=== PATIENT | male | born 1975 | race Asian ===

== ENCOUNTER 2017-03-17 13:25 | Emergency (ER) | payer MEDICAID ==
[~2017-03-17] VITALS: Ht 175.3 cm; Wt 81.6 kg
[~2017-03-17 13:25] MED LIST: CELEXA40 MG ORAL; CLINDAMYCIN HC300 MG ORAL; CLONIDINE 0.2M0.2 MG GT; KLONOPIN1 MG ORAL; LEXAPRO5 MG ORAL; NEURONTIN600 MG ORAL; QUETIAPINE FUMA25 MG ORAL; SEROQUEL400 MG ORAL
[2017-03-17] MEDS ORDERED: Morgan Lens TOPIC ONE (14:00)
[2017-03-17] MEDS ORDERED: Tetracaine 0.5% Opth 4ml Soln RIGHT EYE ONE (14:00)
--- NOTE | 2017-03-17 14:20 | Emergency Room Report ---
History of Present Illness General Chief Complaint: To Be Triaged Source: Patient Present Illness HPI [id number] concerned for clotrimazole in eyes. Mild itch. No eye drainage/excessive tearing, change in/loss of vision, blurry vision, headache, nausea, vomiting Endorses 2 weeks of generalized body itch - endorses initial lobo pedis rash/ itch and then "spread to whole body." Denies fever/chills, vesicles, blisters has been applying clotrimazole cream to eyelids, whole body Allergies: Uncoded Allergies: ALL ANTI-PYSCHOTICS. (Allergy, Mild, 01/16/13) POOR HISTORIAN ANTIPSYCHOTICS (Allergy, Unknown, 02/23/12) ANXIETY Patient History Past Medical History: none Past Surgical History: none Pertinent Family History: none Social History: Denies: smoking, alcohol use, drug use Immunizations: UTD Reviewed Nursing Documentation: PMH: Agreed, PSxH: Agreed Nursing Documentation-PMH Hx Neurological Problems: Yes - ADHD Review of Systems All Other Systems: negative except mentioned in HPI Physical Exam Sp02 EP Interpretation: reviewed, normal General Appearance: normal inspection, well appearing, no apparent distress, alert, GCS 15, non-toxic Head: normocephalic, atraumatic Eyes: bilateral eye PERRL, bilateral eye EOMI, bilateral eye other - Bilateral eyes no conjunctival injection ENT: normal ENT inspection, hearing grossly normal, normal voice Neck: normal inspection, full range of motion, supple, no bony tend Respiratory: normal inspection, lungs clear, normal breath sounds, no respiratory distress, no retraction, no wheezing Cardiovascular #1: regular rate, rhythm, no edema Gastrointestinal: normal inspection, normal bowel sounds, non tender, soft, no guarding, no hernia Genitourinary: no CVA tenderness Musculoskeletal: normal inspection, back normal, normal range of motion, Tracey' s Sign negative Neurologic: normal inspection, alert, oriented x3, responsive, leak detector III-XII nml as tested, speech normal Psychiatric: normal inspection, judgement/insight normal, mood/affect normal Skin: normal inspection, normal color, no rash, warm/dry Medical Decision Making Diagnostic Impression: Primary Impression: Itch Additional Impressions: Itch of left eye Itch of right eye ER Course patient likely spread fungal infection from tinea pedis to whole body More likely now irritated conjunctiva No sign of infection, conjunctivitis currently Still c/o systemic itch but not systemic rash, symptoms PO fluconazole given in ED Advised STOP clotrimazole PMD followup as needed DC Status: improved Disposition: HOME, SELF-CARE Condition: Improved Patient Instructions: Pruritus Additional Instructions: - STOP using clotrimazole cream - Use over the counter benadryl as needed for itch - Follow up with your primary care doctor in 1 week if needed DAMIR RUIZ M.D. Mar 17, 2017 14:20
[2017-03-17] MEDS: Fluconazole 100mg tab ORAL ONE (14:28)
[2017-03-17 14:31] VITALS: BP 120/80
== END 2017-03-17 14:45 | disposition home or self-care (01) ==
LOC: EMR 14:36
DX: L29.9 Pruritus, unspecified (principal); H57.8 Other specified disorders of eye and adnexa; Z88.8 Allergy status to other drugs, medicaments and biological substances
CPT/HCPCS: 99282

== ENCOUNTER 2017-03-19 11:12 | Emergency (ER) | payer MEDICAID ==
[~2017-03-19] VITALS: Ht 172.7 cm; Wt 81.6 kg
[2017-03-19 11:45] VITALS: BP 126/72
[2017-03-19] MEDS ORDERED: TERBINAFINE HC250 MG PO (12:16)
[2017-03-19] MEDS ORDERED: BENADRYL25 MG ORAL (12:16)
[2017-03-19 12:19] VITALS: BP 128/70
--- NOTE | 2017-03-19 13:44 | Emergency Room Report ---
History of Present Illness General Chief Complaint: Skin Rash/Abscess Source: Patient Present Illness HPI The patient is a 41-year-old male presenting for possible skin infection he was seen in this emergency department recently for the same complaint. He states that he had tinea pedis approximately 1 month prior which then spread to his entire body. He has been applying clotrimazole topically and states it has not been helping. He states that he has also been applying this to his eyelids. He states that he knows this is wrong. He denies any pain. He does admit to extreme itching. He denies any other medical problems. He denies other symptoms including nausea, vomiting, fever, chills, blurred vision, dizziness, headache Allergies: Uncoded Allergies: ALL ANTI-PYSCHOTICS. (Allergy, Mild, 01/16/13) POOR HISTORIAN ANTIPSYCHOTICS (Allergy, Unknown, 02/23/12) ANXIETY Patient History Past Medical History: see triage record Past Surgical History: other Social History: Reports: drug use Reviewed Nursing Documentation: PMH: Agreed, PSxH: Agreed Nursing Documentation-PMH History Of Psychiatric Problem: Yes - Bipolar Hx Neurological Problems: Yes - ADHD Review of Systems All Other Systems: negative except mentioned in HPI Physical Exam Vital Signs Date Time Temp Pulse Resp B/P (MAP) Pulse Ox O2 Delivery O2 Flow Rate FiO2 03/19/17 11:26 98.4 95 16 121/73 97 Room Air Sp02 EP Interpretation: reviewed, normal General Appearance: no apparent distress, alert, GCS 15, non-toxic Head: normocephalic, atraumatic Eyes: bilateral eye PERRL, bilateral eye EOMI, bilateral eye lid inflammation - inferior ENT: hearing grossly normal, normal pharynx, no angioedema, normal voice Neck: full range of motion, supple/symm/no masses Musculoskeletal: back normal, gait/station normal, normal range of motion, non- tender Neurologic: alert, oriented x3, responsive, motor strength/tone normal, sensory intact, speech normal Psychiatric: judgement/insight normal, memory normal, mood/affect normal, no suicidal/homicidal ideation Skin: normal color, warm/dry, well hydrated, rash - multiple erythematous lesions with raised border, circular Medical Decision Making PA Attestation Dr. Madison is my supervising physician. Patient management was discussed with my supervising physician Diagnostic Impression: Primary Impression: Tinea corporis ER Course The patient is a 41-year-old male presenting for possible skin infection Differential diagnoses considered but not limited to: Tinea corporis, scabies, insect bite, cellulitis, among others Physical exam: Afebrile. No apparent distress HEENT exam: There is bilateral anterior eyelid erythema. PERRL. EOMI. no discharge. Skin: Warm and dry. There are multiple small circular erythematous lesions with raised borders. No burrowing. No surrounding erythema. Nontender Patient is discharged home with prescription for oral antifungal. He was informed he is not to consume any alcohol with this and the dangers associated with it. ER precautions are given. He will follow up with primary doctor Last Vital Signs Date Time Temp Pulse Resp B/P (MAP) Pulse Ox O2 Delivery O2 Flow Rate FiO2 03/19/17 12:19 98.2 72 20 128/70 98 Room Air Status: improved Disposition: HOME, SELF-CARE Condition: Improved Scripts Diphenhydramine Hcl* (BENADRYL*) 25 Mg Capsule 25 MG ORAL Q6H Y for Itching, #30 CAP Prov: JORGE MCGUIRE.A. 03/19/17 Terbinafine Hcl* (LAMISIL*) 250 Mg Tablet 250 MG PO DAILY, #14 TAB Prov: JORGE MCGUIRE.Martin. 03/19/17 Referrals: NOT CHOSEN [facility],REFERRING (PCP) Patient Instructions: Rash, Body Ringworm Additional Instructions: I discussed my findings with the patient. All questions and concerns have been answered. Treatment and medication compliance have been addressed. I advised the patient that they need to follow up with PMD in 3-5 days. Return to ED if symptoms worsen, new symptoms arise, or if needed for any reason. Patient verbalized understanding of discharge instructions. JORGE MCGUIRE Mar 19, 2017 13:44
== END 2017-03-19 12:42 | disposition home or self-care (01) ==
LOC: EMR 12:15
DX: B35.4 Tinea corporis (principal); F31.9 Bipolar disorder, unspecified; Z88.8 Allergy status to other drugs, medicaments and biological substances
CPT/HCPCS: 99284

== ENCOUNTER 2017-10-20 20:31 | Emergency (ER) | payer MEDICAID, OTHER ==
[~2017-10-20] VITALS: Ht 172.7 cm; Wt 83.9 kg
[~2017-10-20 20:31] MED LIST changes: +BENADRYL25 MG ORAL; +TERBINAFINE HC250 MG PO
[2017-10-20 20:51] VITALS: BP 113/77
--- NOTE | 2017-10-20 21:30 | Emergency Room Report ---
History of Present Illness General Chief Complaint: Earache Source: Patient Present Illness HPI 42-year-old male with no medical problems presents with foreign body sensation in left ear He reports he discussed the shower and hour ago, but a Q-tip in his ear, pulled it out, and the cotton tip was no longer on the Q-tip and so he knows it's in his ear He denies pain or bleeding Allergies: Uncoded Allergies: ALL ANTI-PYSCHOTICS. (Allergy, Mild, 01/16/13) POOR HISTORIAN ANTIPSYCHOTICS (Allergy, Unknown, 02/23/12) ANXIETY Patient History Past Medical History: see triage record Reviewed Nursing Documentation: PMH: Agreed; PSxH: Agreed Nursing Documentation-PMH History Of Psychiatric Problem: Yes - Bipolar Hx Neurological Problems: Yes - ADHD Review of Systems Constitutional: Reports: no symptoms Eye: Reports: no symptoms; Denies: see HPI, eye pain, blurred vision, tearing, double vision, nose pain, nose congestion, acuity changes, discharge, other ENT: Reports: see HPI, ear pain Hematologic/Lymphatic: Denies: no symptoms, see HPI, anemia Allergic: Reports: no symptoms Physical Exam Vital Signs Date Time Temp Pulse Resp B/P (MAP) Pulse Ox O2 Delivery O2 Flow Rate FiO2 10/20/17 20:42 99.2 81 14 113/77 95 Room Air 99.1 Sp02 EP Interpretation: reviewed, normal General Appearance: well appearing, no apparent distress, alert Eyes: bilateral eye normal inspection, bilateral eye PERRL, bilateral eye EOMI ENT: normal ENT inspection, hearing grossly normal, normal pharynx, normal voice, TMs + canals normal, moist mucus membranes, other - Left ear with cotton foreign body in canal Neck: normal inspection, full range of motion, supple Respiratory: normal inspection, chest non-tender, lungs clear, normal breath sounds Cardiovascular #1: normal inspection, regular rate, rhythm, no edema, no gallop , no murmur, no rub Gastrointestinal: non tender, soft Musculoskeletal: normal inspection Neurologic: normal inspection, alert, manager editorial III-XII nml as tested, motor strength /tone normal, sensory intact Psychiatric: normal inspection, judgement/insight normal, mood/affect normal Skin: normal inspection, normal color, no rash Lymphatic: normal inspection, no adenopathy Medical Decision Making Diagnostic Impression: Primary Impression: Foreign body in ear ER Course Simple alligator forceps was used to remove cotton ball with no difficulty, no bleeding, no, medications, canal and TM was normal upon visualization after removal of cotton Last Vital Signs Date Time Temp Pulse Resp B/P (MAP) Pulse Ox O2 Delivery O2 Flow Rate FiO2 10/20/17 20:51 99.1 65 14 113/77 95 Room Air 99.1 Disposition: HOME, SELF-CARE Condition: Stable Patient Instructions: Ear Foreign Body, [id number], Earache PARAG HINKLE M.D Oct 20, 2017 21:30
[2017-10-20 21:46] VITALS: BP 113/77
== END 2017-10-20 21:48 | disposition home or self-care (01) ==
LOC: EMR 21:20
DX: T16.2XXA Foreign body in left ear, initial encounter (principal); X58.XXXA Exposure to other specified factors, initial encounter; Y92.9 Unspecified place or not applicable; F31.9 Bipolar disorder, unspecified
CPT/HCPCS: 99282

== ENCOUNTER 2018-03-09 11:27 | Emergency (ER) | payer OTHER ==
[~2018-03-09] VITALS: Ht 175.3 cm; Wt 83.5 kg
[2018-03-09 11:45] VITALS: BP 115/70
--- NOTE | 2018-03-09 12:10 | Emergency Room Report ---
History of Present Illness General Chief Complaint: Eye Problems Source: Patient Present Illness HPI 42-year-old male patient presents ER complaining of trauma to the left eye. Patient reports that he was showering yesterday when he accidentally poked himself in the lateral aspect of his left eye near left border. Denies acute complaints at this time. Denies vision loss. Denies photophobia or vision changes. Denies eye discharge. Denies eye pain. Denies pain with eye movement. Denies foreign body sensation. Denies loss of consciousness. Patient reports he came to the ER to "make sure one of his eye muscles denies rupture". Denies wearing contacts. Denies loss of consciousness. Allergies: Uncoded Allergies: ALL ANTI-PYSCHOTICS. (Allergy, Mild, 01/16/13) POOR HISTORIAN ANTIPSYCHOTICS (Allergy, Unknown, 02/23/12) ANXIETY Patient History Past Medical History: see triage record Reviewed Nursing Documentation: PMH: Agreed; PSxH: Agreed Nursing Documentation-PMH Past Medical History: No Stated History Hx Neurological Problems: Yes - ADHD Review of Systems All Other Systems: negative except mentioned in HPI Physical Exam Vital Signs Date Time Temp Pulse Resp B/P (MAP) Pulse Ox O2 Delivery O2 Flow Rate FiO2 03/09/18 11:36 98.1 82 18 113/71 97 Room Air Sp02 EP Interpretation: reviewed, normal General Appearance: well appearing, no apparent distress, alert, GCS 15, non- toxic Head: normocephalic, atraumatic, other - no surrounding erythema or edema, negative Raccoon eyes Eyes: bilateral eye normal inspection, bilateral eye PERRL, bilateral eye EOMI , bilateral eye other - no conjunctival injection ENT: hearing grossly normal, normal pharynx, no angioedema, normal voice, uvula midline, moist mucus membranes Neck: full range of motion Respiratory: lungs clear, normal breath sounds, no rhonchi, no respiratory distress, no accessory muscle use, no wheezing, speaking full sentences Cardiovascular #1: regular rate, rhythm, no edema Musculoskeletal: back normal, digits/nails normal, gait/station normal, normal range of motion, non-tender Neurologic: alert, oriented x3, responsive, motor strength/tone normal, sensory intact Psychiatric: mood/affect normal Skin: no rash Medical Decision Making PA Attestation Dr. Gama is my supervising Physician whom patient management has been discussed with. Diagnostic Impression: Primary Impression: Eyeball contusion ER Course Pt. presents to the ED c/o left eye injury. Ddx considered but are not limited to allergic conjunctivitis, viral conjunctivitis, bacterial conjunctivitis, periorbital cellulitis, URI, sinusitis , keratitis, glaucoma. No reduction in VA, no cilliary flush, no photophobia, no FB sensation, no corneal opacity, low suspicion for keratitis, iritis. No HAIRSTON, no vomiting, no fixed pupil, no reduction of VA, no ciliary flush, low suspicion for angle closure glaucoma. See nurses note for visual acuity. Vital signs: are WNL, pt. is afebrile Patient has no signs of surrounding cellulitis, no pain with eye movement, does not require imaging at this time. ER COURSE: physical exam benign, no conjunctival injection, no surrounding erythema or edema, EOMs intact, PERRLA. likely contusion from eye trauma, no subconjunctival hemorrhage, no pain, or injection, low suspicion for abrasion. F/u with ophthalmology. F/u with siderographist. Discuss care with Dr. Gama, will provide patient with abx ointment if symptoms present begin taking medication. F/u with eye doctor, patient states he has an eye doctor he can call and followup with. ER precautions given. DISCHARGE: At this time pt. is stable for d/c to home. Patient is resting comfortably, in no acute distress, nontoxic appearing, talking and smiling without difficulty. Will provide printed patient care instructions, and any necessary prescriptions. Patient instructed to follow up with monotype operator and discuss further follow up with ophthalmology and siderographist. Care plan and follow up instructions have been discussed with the patient prior to discharge. Patient questions asked and answered. Patient reports undestanding and agreement to treatment plan. ER precautions given. Patient instructed to return to ER immediately for any new or worsening of symptoms including but not limited to vision loss, fever, changes in vision. - Please note that this Emergency Department Report was dictated using [employer] machine setter/set up operator technology software, occasionally this can lead to erroneous entry secondary to interpretation by the dictation equipment. Last Vital Signs Date Time Temp Pulse Resp B/P (MAP) Pulse Ox O2 Delivery O2 Flow Rate FiO2 03/09/18 11:36 98.1 82 18 113/71 97 Room Air Disposition: HOME, SELF-CARE Condition: Stable Scripts Erythromycin Base (ERYTHROMYCIN*) 3.5 Gm Oint...g. 1 APPLIC LEFT EYE TID, #3.5 GM 0 Refills Prov: Milad Burton 03/09/18 Patient Instructions: Eye Contusion, [id number] Additional Instructions: Followup with primary care provider in 2- 3 days. Discuss referral to ophthalmology and siderographist. Take medications as directed. Take Tylenol if pain symptoms present. Use OTC clear eyes eye drops if injection appears. Patient questions asked and answered. ER precautions given, patient instructed to return to ER immediately for any new or worsening of symptoms. Milad Burton Mar 09, 2018 12:09
[2018-03-09] MEDS ORDERED: ERYTHROMYCIN3.5 GM LEFT EYE (12:11)
[2018-03-09 12:15] VITALS: BP 115/70
== END 2018-03-09 12:15 | disposition home or self-care (01) ==
LOC: EMR 12:15
DX: S05.12XA Contusion of eyeball and orbital tissues, left eye, initial encounter (principal); W22.8XXA Striking against or struck by other objects, initial encounter; Y93.F1 Activity, caregiving, bathing; Y92.9 Unspecified place or not applicable
CPT/HCPCS: 99282

== ENCOUNTER 2018-05-03 19:43 | Emergency (ER) | payer OTHER ==
[~2018-05-03] VITALS: Ht 175.3 cm; Wt 81.6 kg
[~2018-05-03 19:43] MED LIST changes: +ERYTHROMYCIN3.5 GM LEFT EYE
[2018-05-03 21:11] VITALS: BP 120/69
--- NOTE | 2018-05-03 21:12 | NUR ---
ED Nurse Note: pt walked into ED for medication refill, klonopin 1mg at bedtime. MD at the bedside. Pt vss, AA&ox4, gcs=15, will continue to monitor.
[2018-05-03] MEDS ORDERED: KLONOPIN1 MG ORAL (21:20)
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
[2018-05-03 21:25] VITALS: BP 128/88
--- NOTE | 2018-05-03 21:25 | NUR ---
ED Nurse Note: Pt discharge instruction provided w/ prescription, id band removed, pt education done, pt refused to take discharge paperwork and stated he only needs prescription, pt advised to follow up with pcp to continue med, pt verbalized understanding and agrees with plan of care.
== END 2018-05-03 21:25 | disposition home or self-care (01) ==
LOC: EMR 20:56
DX: Z76.0 Encounter for issue of repeat prescription (principal); F41.9 Anxiety disorder, unspecified; F31.9 Bipolar disorder, unspecified; F90.9 Attention-deficit hyperactivity disorder, unspecified type
CPT/HCPCS: 99282

== ENCOUNTER 2018-12-10 15:38 | Emergency (ER) | payer OTHER ==
[~2018-12-10] VITALS: Ht 172.7 cm; Wt 83.9 kg
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
[2018-12-10 16:08] VITALS: BP 122/84
--- NOTE | 2018-12-10 17:10 | Diagnostic Imaging Report ---
Indication: Back pain Comparison: None Findings: 3 views of the lumbar spine were obtained. No fracture seen. There is no malalignment. Soft tissues are unremarkable. IMPRESSION: No acute injury identified
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
[2018-12-10 17:20] VITALS: BP 125/78
[2018-12-10] MEDS ORDERED: COLACE100 MG ORAL (17:20)
[2018-12-10 17:30] VITALS: BP 125/78
--- NOTE | 2018-12-10 17:30 | NUR ---
ER DISCHARGE NOTE: Patient is cleared to be discharged per ERMD, pt is aox4, on room air, with stable vital signs. pt was given dc and prescription instructions, pt was able to verbalize understanding, pt id band removed. pt is able to ambulate with steady gait. pt took all belongings.
== END 2018-12-10 17:30 | disposition home or self-care (01) ==
LOC: EMR 16:45
DX: S39.012A Strain of muscle, fascia and tendon of lower back, initial encounter (principal); K59.00 Constipation, unspecified; F90.9 Attention-deficit hyperactivity disorder, unspecified type; F31.9 Bipolar disorder, unspecified; G47.00 Insomnia, unspecified; Z88.8 Allergy status to other drugs, medicaments and biological substances; V43.52XA Car driver injured in collision with other type car in traffic accident, initial encounter; Y92.410 Unspecified street and highway as the place of occurrence of the external cause
CPT/HCPCS: 72020; 99283

== ENCOUNTER 2019-10-08 17:24 | Emergency (ER) | payer OTHER ==
[~2019-10-08] VITALS: Ht 175.3 cm; Wt 81.6 kg
[~2019-10-08 17:24] MED LIST changes: +COLACE100 MG ORAL
[2019-10-08] MEDS ORDERED: ANUSOL-HC25 MG RECTAL (17:46)
[2019-10-08] MEDS ORDERED: RECTICARE30 GM TP (17:47)
[2019-10-08 17:49] VITALS: BP 102/69
--- NOTE | 2019-10-08 17:50 | NUR ---
ED Nurse Note: Patient walked into ED c/o "really bad hemorrhoid flare up" states that hes had history of hemorrhoids however has been getting worse for the past 2 months. Patient AAO x4, VSS at this time
--- NOTE | 2019-10-08 17:51 | Emergency Room Report ---
History of Present Illness General Chief Complaint: Pain Source: Patient Present Illness HPI Patient is a 44-year-old male past medical history of hemorrhoids who presents the ER complaining of painful external hemorrhoids. Patient states that he is on MiraLAX at home. He states that he has been constipated and therefore has had increased rectal pain. He denies any fever or chills. He denies any rectal bleeding. He denies any nausea or vomiting. Allergies: Uncoded Allergies: ALL ANTI-PYSCHOTICS. (Allergy, Mild, 01/16/13) POOR HISTORIAN ANTIPSYCHOTICS (Allergy, Unknown, 02/23/12) ANXIETY COVID-19 Screening Contact w/high risk pt: No Recent Travel to affected area: No Experienced COVID-19 symptoms?: No COVID-19 Testing performed ONLINE MARKETING DIRECTOR: No Patient History Reviewed Nursing Documentation: PMH: Agreed; PSxH: Agreed Nursing Documentation-PMH Past Medical History: No History, Except For Hx Neurological Problems: Yes - ADHD Review of Systems All Other Systems: negative except mentioned in HPI Physical Exam Vital Signs Date Time Temp Pulse Resp B/P (MAP) Pulse Ox O2 Delivery O2 Flow Rate FiO2 10/08/19 17:31 98.4 90 18 102/69 (80) 97 Sp02 EP Interpretation: reviewed, normal General Appearance: no apparent distress, alert, GCS 15, non-toxic Head: normocephalic, atraumatic Eyes: bilateral eye normal inspection, bilateral eye PERRL ENT: hearing grossly normal, normal pharynx, no angioedema, normal voice Neck: full range of motion, supple/symm/no masses Respiratory: chest non-tender, lungs clear, normal breath sounds, speaking full sentences Cardiovascular #1: regular rate, rhythm, no edema Gastrointestinal: normal bowel sounds, non tender, soft, non-distended, no guarding, no rebound Rectal: other - Tender nonthrombosed external hemorrhoids no bleeding java application engineer RN Wilbur Genitourinary: normal inspection, no CVA tenderness Musculoskeletal: back normal, normal range of motion, no calf tenderness, gait/ station normal, non-tender Neurologic: alert, motor strength/tone normal, oriented x3, sensory intact, responsive, speech normal Psychiatric: judgement/insight normal, memory normal, mood/affect normal, no suicidal/homicidal ideation Skin: no rash Lymphatic: no adenopathy Medical Decision Making Diagnostic Impression: Primary Impression: External hemorrhoid Additional Impression: Acute hemorrhoid ER Course Patient already on stool softeners at home. Patient given a prescription for topical lidocaine as well as Anusol with cortisone. After discussing risks and benefits of further diagnostics, treatment plans, as well as indications for and risks of admission, the patient is agreeable to being discharged home. I have explained that their evaluation and treatment in the emergency department today is an important step towards them achieving better health but that their evaluation today is not intended to replace further evaluation and treatment by a physician in their local clinic. I have explained that while the current findings suggest no immediate life threatening emergency they will require further evaluation and treatment by a physician of their choice in their area. They understand that it will be necessary for them to review the final reports of their ED visit with their clinic physician. We have reviewed indications for return to the Emergency Department. I have explained that additional time may need to pass and/or additional testing as an outpatient may be necessary before a definitive diagnosis can be made. They tell me they are willing to follow up as instructed within the timeframe I recommend. They appear to understand what we discussed. Additionally they understand that if they are unable to be seen by an outpatient physician they are welcome, and in fact should, return to the Emergency Department for a repeat evaluation. The patient is stable at time of discharge. Last Vital Signs Date Time Temp Pulse Resp B/P (MAP) Pulse Ox O2 Delivery O2 Flow Rate FiO2 10/08/19 17:31 98.4 90 18 102/69 (80) 97 Disposition: HOME, SELF-CARE Condition: Stable Scripts Lidocaine (RECTICARE) 30 Gm Cream..g. 30 GM TP BID for 7 Days, GM Prov: Joselin Riojas M.D. 10/08/19 Hydrocortisone Acetate* (ANUSOL-HC*) 25 Mg Supp.rect 1 SUPP RECTAL TWICE A DAY for 7 Days, SUPP Prov: Joselin Riojas M.D. 10/08/19 Referrals: [facility] Patient Instructions: Disposable Sitz Bath, How to Take a Sitz Bath, Hemorrhoids, [id number] Additional Instructions: The patient was provided with discharge instructions, notified to follow-up with a primary care doctor and or specialist in the next 24-48 hours, and to return to the ED if they have worsening of their symptoms. Please note that this report is being documented using [employer] technology. This can lead to erroneous entry secondary to incorrect interpretation by the dictating instrument. Joselin Riojas M.D. Oct 08, 2019 17:51
[2019-10-08 17:53] VITALS: BP 102/69
--- NOTE | 2019-10-08 17:53 | NUR ---
ED Nurse Note: Pt cleared by health care Provider for discharge. DC instructions/prescription was given and explained to pt and verbalized understanding of teachings. All medical deviecs such as ID band removed. Pt is AAO x4, ambulatory and left with all personal belongings.
== END 2019-10-08 17:52 | disposition home or self-care (01) ==
LOC: EMR 17:50
DX: K64.4 Residual hemorrhoidal skin tags (principal); K59.00 Constipation, unspecified; Z88.8 Allergy status to other drugs, medicaments and biological substances
CPT/HCPCS: 99282

== ENCOUNTER 2019-10-13 18:24 | Emergency (ER) | payer OTHER ==
[~2019-10-13] VITALS: Ht 172.7 cm; Wt 81.6 kg
[~2019-10-13 18:24] MED LIST changes: +ANUSOL-HC25 MG RECTAL; +RECTICARE30 GM TP
--- NOTE | 2019-10-13 18:59 | Emergency Room Report ---
History of Present Illness General Chief Complaint: Constipation Source: Patient Present Illness HPI Patient presents with worsening of his constipation. He has had this intermittently for a long time. Recently though stools have been extremely hard. He has used MiraLAX and Metamucil and sometimes stimulant laxatives. After the stimulant laxatives he had good bowel movements transiently but they have returned to being hard. His hemorrhoids have become active. It has never been this severe of a problem. He states the problem started when he drank alkaline water. He is spending a lot of time on the toilet and straining extremely hard. He is concerned whether he is causing himself to develop hernias. He has no groin pain. He denies abdominal pain. Hemorrhoids have not been bleeding. The stools have been a chalky color without any blood. He is extremely anxious about causing hernias. He has been drinking a lot of water. He is urinating frequently. There is no family history of diabetes. He states previously his diet was poor but he has been eating more fruits and vegetables recently. He has been stable on multiple psych meds. He has ADHD. He recently added valerian root as he has insomnia. He used some meth 3 months ago. He does not drink alcohol. He stopped smoking 2 years ago. He denies suicidal or homicidal ideation. No fevers, chills, sore throat, chest pain, palpitations, nausea, vomiting, diarrhea, dysuria, shortness of breath, joint pain, rashes, dizziness, headache. Allergies: Uncoded Allergies: ALL ANTI-PYSCHOTICS. 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: No Patient History Past Medical History: see triage record Social History: Denies: smoking - Prior, alcohol use, drug use - Methamphetamine Social History Narrative Lives with his mother Reviewed Nursing Documentation: PMH: Agreed; PSxH: Agreed Nursing Documentation-PM Past Medical History: No History, Except For Hx Neurological Problems: Yes - ADHD Review of Systems All Other Systems: negative except mentioned in HPI Physical Exam Vital Signs Date Time Temp Pulse Resp B/P (MAP) Pulse Ox O2 Delivery O2 Flow Rate FiO2 10/13/19 18:35 98.6 75 16 133/87 (102) 98 Room Air Sp02 EP Interpretation: reviewed, normal General Appearance: well appearing, no apparent distress, GCS 15, non-toxic Head: normocephalic Eyes: bilateral eye normal inspection, bilateral eye PERRL, bilateral eye EOMI ENT: moist mucus membranes Neck: supple Respiratory: lungs clear, normal breath sounds Cardiovascular #1: regular rate, rhythm Cardiovascular #2: 2+ radial (R) Gastrointestinal: normal inspection, normal bowel sounds, non tender, no mass, non-distended, no hernia Rectal: other - Reported hemorrhoids not examined Genitourinary: no CVA tenderness Musculoskeletal: back normal, normal range of motion, gait/station normal Neurologic: alert, oriented x3, normal inspection Psychiatric: no suicidal/homicidal ideation, no delusions, anxious Skin: no rash, warm/dry Medical Decision Making Diagnostic Impression: Primary Impression: Constipation Qualified Codes: K59.00 - Constipation, unspecified ER Course Patient presents with constipation history of psychiatric medication use. Differential includes dehydration, electrolyte imbalance, slow transit constipation amongst others. Evaluation with labs and abdominal film. Patient will be given a dose of lactulose here. There is no evidence of any hernia at this time. Labs unremarkable except for low white count. Abdomen film with increased stool load no obstruction. Discussed results with patient and treatment plan. Discussed the possibility that medications might be contributing. Suggested follow-up with etched circuit processor. Patient stable for outpatient observation and treatment. Laboratory Tests Test 10/13/19 19:13 White Blood Count 4.0 K/UL (4.8-10.8) L Red Blood Count 4.65 M/UL (4.70-6.10) L Hemoglobin 14.5 G/DL (14.2-18.0) Hematocrit 45.3 % (42.0-52.0) Mean Corpuscular Volume 97 FL (80-99) Mean Corpuscular Hemoglobin 31.1 PG (27.0-31.0) H Mean Corpuscular Hemoglobin Concent 31.9 G/DL (32.0-36.0) L Red Cell Distribution Width 12.2 % (11.6-14.8) Platelet Count 236 K/UL (150-450) Mean Platelet Volume 6.9 FL (6.5-10.1) Neutrophils (%) (Auto) 56.7 % (45.0-75.0) Lymphocytes (%) (Auto) 31.1 % (20.0-45.0) Monocytes (%) (Auto) 7.8 % (1.0-10.0) Eosinophils (%) (Auto) 3.3 % (0.0-3.0) H Basophils (%) (Auto) 1.2 % (0.0-2.0) Urine Color Pale yellow Urine Appearance Clear Urine pH 6.5 (4.5-8.0) Urine Specific [place] 1.005 (1.005-1.035) Urine Protein Negative (NEGATIVE) Urine Glucose (UA) Negative (NEGATIVE) Urine Ketones Negative (NEGATIVE) Urine Blood Negative (NEGATIVE) Urine Nitrite Negative (NEGATIVE) Urine Bilirubin Negative (NEGATIVE) Urine Urobilinogen Normal MG/DL (0.0-1.0) Urine Leukocyte Esterase Negative (NEGATIVE) Sodium Level 139 MMOL/L (136-145) Potassium Level 3.9 MMOL/L (3.5-5.1) Chloride Level 103 MMOL/L (98-107) Carbon Dioxide Level 31 MMOL/L (21-32) Anion Gap 5 mmol/L (5-15) Blood Urea Nitrogen 5 mg/dL (7-18) L Creatinine 1.2 MG/DL (0.55-1.30) Estimated Glomerular Filtration Rate > 60 mL/min (>60) Glucose Level 108 MG/DL (74-106) H Calcium Level 8.9 MG/DL (8.5-10.1) Total Bilirubin 0.2 MG/DL (0.2-1.0) Aspartate Amino Transferase (AST) 19 U/L (15-37) Alanine Aminotransferase (ALT) 34 U/L (12-78) Alkaline Phosphatase 79 U/L (46-116) Total Protein 7.1 G/DL (6.4-8.2) Albumin 4.2 G/DL (3.4-5.0) Globulin 2.9 g/dL Albumin/Globulin Ratio 1.4 (1.0-2.7) Lipase 84 U/L (73-393) Urine Opiates Screen Negative (NEGATIVE) Urine Barbiturates Screen Negative (NEGATIVE) Phencyclidine (PCP) Screen Negative (NEGATIVE) Urine Amphetamines Screen Negative (NEGATIVE) Urine Benzodiazepines Screen Negative (NEGATIVE) Urine Cocaine Screen Negative (NEGATIVE) Urine Marijuana (THC) Screen Negative (NEGATIVE) Other X-Ray Diagnostic Results Other X-Ray Diagnostic Results : X-Ray ordered: abd # of Views/Limited Vs Complete: 2 View Indication: Other EP Interpretation: Yes Interpretation: nonspecific bowel gas, no sbo, other - inc stool Impression: Other Electronically Signed by: Electronically signed by Yahir Mustafa MD Last Vital Signs Date Time Temp Pulse Resp B/P (MAP) Pulse Ox O2 Delivery O2 Flow Rate FiO2 10/13/19 21:33 98.6 72 16 124/79 98 Room Air Status: improved Disposition: HOME, SELF-CARE Condition: Improved Scripts Lactulose (LACTULOSE*) 20 Gm/30 Ml Solution 30 ML ORAL BID PRN for Constipation, #240 ML 0 Refills Prov: Yahir Mustafa MD 10/13/19 Yahir Mustafa MD Oct 13, 2019 18:59
[2019-10-13] MEDS ORDERED: Lactulose 20gm/30ml UDC ORAL ONE (19:00)
--- NOTE | 2019-10-13 19:00 | NUR ---
ED Nurse Note:pt. came from home with c/o constipation and rectal pain from hemmohroids, pt. is A/Ox4 ambulatory , seen by ER
[2019-10-13 19:15] VITALS: BP 127/84
--- NOTE | 2019-10-13 19:20 | NUR ---
HAND-OFF: Report given to Annalisa.
--- NOTE | 2019-10-13 19:25 | NUR ---
ED Nurse Note: blood work and urine sent to lab
--- NOTE | 2019-10-13 19:27 | NUR ---
ED Nurse Note: Xray at bedside
[2019-10-13 19:32] LABS: BASOPHILS % (AUTO) 1.2 % (0.0-2.0); EOSINOPHILS % (AUTO) 3.3 % (0.0-3.0); HEMATOCRIT 45.3 % (42.0-52.0); HEMOGLOBIN 14.5 G/DL (14.2-18.0); LYMPHOCYTES % (AUTO) 31.1 % (20.0-45.0); MEAN CORPUSCULAR VOLUME 97 FL (80-99); MONOCYTES % (AUTO) 7.8 % (1.0-10.0); NEUTROPHILS % (AUTO) 56.7 % (45.0-75.0); PLATELET COUNT 236 K/UL (150-450); RED BLOOD COUNT 4.65 M/UL (4.70-6.10); RED CELL DISTRIBUTION WIDTH 12.2 % (11.6-14.8)
[2019-10-13 19:33] LABS: APPEARANCE,URINE CLEAR; BILIRUBIN, URINE NEGATIVE (NEGATIVE); COLOR,URINE PALE YELLOW; GLUCOSE, URINE (UA) NEGATIVE (NEGATIVE); KETONES,URINE NEGATIVE (NEGATIVE); LEUKOCYTE ESTERASE ,URINE NEGATIVE (NEGATIVE); NITRITE,URINE NEGATIVE (NEGATIVE); PH,URINE 6.5 (4.5-8.0); PROTEIN,URINE NEGATIVE (NEGATIVE); UROBILINOGEN,URINE NORMAL MG/DL (0.0-1.0)
[2019-10-13 19:43] LABS: ANION GAP 5 mmol/L (5-15); BLOOD UREA NITROGEN 5 mg/dL (7-18); CALCIUM 8.9 MG/DL (8.5-10.1); CARBON DIOXIDE 31 MMOL/L (21-32); CHLORIDE 103 MMOL/L (98-107); CREATININE 1.2 MG/DL (0.55-1.30); POTASSIUM 3.9 MMOL/L (3.5-5.1); SODIUM 139 MMOL/L (136-145)
[2019-10-13 19:47] LABS: ALANINE AMINOTRANSFERASE 34 U/L (12-78); ALBUMIN 4.2 G/DL (3.4-5.0); ALBUMIN/GLOBULIN RATIO 1.4 (1.0-2.7); ALKALINE PHOSPHATASE 79 U/L (46-116); ASPARTATE AMINO TRANSFERASE 19 U/L (15-37); BILIRUBIN,TOTAL 0.2 MG/DL (0.2-1.0)
--- NOTE | 2019-10-13 19:48 | Diagnostic Imaging Report ---
EXAM: XR Abdomen, 2 Views CLINICAL HISTORY: ABD PAIN TECHNIQUE: Frontal view of the abdomen/pelvis with upright view of the abdomen. COMPARISON: None available. FINDINGS: Intraperitoneal space: No free air. Gastrointestinal tract: Well-formed stool noted throughout the colon. No dilation. Bones/joints: Unremarkable. IMPRESSION: Moderate colonic stool burden without obstructive bowel gas pattern
--- NOTE | 2019-10-13 20:45 | NUR ---
ED Nurse Note: pt given juice and sandwiches per request
[2019-10-13 21:18] VITALS: BP 124/79
--- NOTE | 2019-10-13 21:20 | NUR ---
ED Nurse Note: ERMD at bedside
[2019-10-13] MEDS ORDERED: LACTULOSE20 GM/301 ORAL (21:25)
[2019-10-13 21:33] VITALS: BP 124/79
--- NOTE | 2019-10-13 21:33 | NUR ---
ER DISCHARGE NOTE: Patient is cleared to be discharged home per ERMD, pt is aox4, 99% on room air, with stable vital signs. pt was given dc and prescription instructions, pt was able to verbalize understanding, pt id band removed. pt is able to ambulate with steady gait. pt took all belongings.
== END 2019-10-13 21:33 | disposition home or self-care (01) ==
LOC: EMR 19:20
DX: K59.00 Constipation, unspecified (principal); G47.00 Insomnia, unspecified; Z88.8 Allergy status to other drugs, medicaments and biological substances
CPT/HCPCS: 36415; 74018; 80053; 80307; 81003; 83690; 85025; 99283